=== PATIENT | female | born 1950 | race Caucasian/White ===

== ENCOUNTER 2017-06-28 13:58 | Outpatient (CLI) | payer OTHER ==
[2017-06-28 19:06] LABS: FOLATE 21.53 ng/mL (5.90 - >24.8)
[2017-06-28 19:11] LABS: IRON 65 ug/dL (28-170); TOTAL IRON BINDING CAPACITY 337 ug/dL (250-450); TRANSFERRIN 241 mg/dL (192-382)
[2017-06-28 19:16] LABS: THYROID STIMULATING HORMONE 2.3 uIU/mL (0.34-5.60)
[2017-06-28 19:20] LABS: HEMOGLOBIN A1C 0.52 g/dL
== END 2017-06-28 13:59 | disposition home or self-care (01) ==
LOC: LAB.F 13:58
PROVIDERS: ATTEND Nurse Practitioner Family
DX: G60.9 Hereditary and idiopathic neuropathy, unspecified (principal)
CPT/HCPCS: 36415; 82607; 82746; 83036; 83540; 84443; 84466

== ENCOUNTER 2017-08-24 15:22 | Outpatient (CLI) | payer OTHER ==
--- NOTE | 2017-09-01 13:01 | Mammography Report ---
DIGITAL SCREENING MAMMOGRAM: 08/24/2017 CLINICAL INDICATION: A 67-year-old for screening. COMPARISON: 10/2013, 07/2008 TECHNIQUE: Routine CC and MLO projections were obtained of the breasts. FINDINGS: The breasts demonstrate heterogeneously dense fibroglandular parenchyma bilaterally. Punc shankar, typically benign calcifications are present. No suspicious masses, clustered microcalcificatio ns, or regions of architectural distortion are identified. IMPRESSION: BENIGN FINDINGS. RECOMMENDATION: Routine annual screening unless otherwise clinically indicated. BIRADS CATEGORY 2 - BENIGN FINDINGS. STANDARD QUALIFYING STATEMENTS 1. This examination was reviewed with the aid of Computer-Aided Detection (CAD). 2. A negative or benign imaging report should not delay biopsy if clinically suspicious findings are present. Consider surgical consultation if warranted. More than 5% of cancers are not identified by i maging. 3. Dense breasts may obscure an underlying neoplasm. JOB #: [id number] EXT JOB #:[id number]
== END 2017-08-24 15:23 | disposition home or self-care (01) ==
LOC: DI.S 15:22
PROVIDERS: ATTEND Nurse Practitioner Family
DX: Z12.31 Encounter for screening mammogram for malignant neoplasm of breast (principal)
CPT/HCPCS: 77067

== ENCOUNTER 2020-03-26 17:04 | Outpatient (CLI) | payer MEDICARE | END 2020-03-26 23:59 | disposition critical access hospital (66) | LOC: EMS 17:04 | PROVIDERS: ATTEND Surgery | DX: R07.9 Chest pain, unspecified (principal) | CPT/HCPCS: A0425; A0427 ==

== ENCOUNTER 2020-03-26 17:31 | Observation (INO) | payer MEDICARE, OTHER ==
[2020-03-26] MEDS ORDERED: SODIUM CHLORIDE 0.9% 1,000 ML IV ONE ×2 (17:45→18:51)
--- NOTE | 2020-03-26 17:46 | ED Physician Documentation ---
PD HPI CHEST PAIN - Stated complaint Stated Complaint: CHEST PAIN - History obtained from History obtained from: Patient, EMS - History of Present Illness Timing - onset: Enter time (1624), Today Timing - onset during: Rest Timing - duration: Minutes (5) Timing - details: Abrupt onset, Waxing and waning, Still present in ED Pain level max: 10 Pain level now: 2 Quality: Pressure Location: Substernal, Left chest Radiation: Jaw, Neck Improved by: Nitro Worsened by: No: Exertion, Inspiration, Eating, Movement, Palpation, Position Associated symptoms: Diaphoresis, Nausea, Feeling faint / dizzy, General Weakness. No: Vomiting, Palpitations, Cough Similar symptoms before: Has not had sx before Recently seen: Not recently seen - Additional information Additional information: Previously well 69-year-old female has developed pain in her left chest that is radiated up into her neck and jaw. She states that she was sitting on her couch this afternoon after working in the garden all day when she had the onset of this 9 out of 10 pain that lasted about 5 minutes. She got mildly diaphoretic with it mildly nauseous felt faint but did not get short of breath. She did state that she tested her exertion and had exertional capacity without change in the pain. She also states that in the ambulance her pain returned she was given nitroglycerin that resolved returned she was given nitroglycerin and resolved. The patient states that she has not had a prior cardiac history and her family history is mostly negative except for her grandparents. She did spend the day outside weeding and raking and she had a cup of coffee this morning and a drink of cold milk this afternoon. Review of Systems Constitutional: denies: Fever, Chills, Myalgias, Fatigue Eyes: denies: Decreased vision Ears: denies: Ear pain Nose: denies: Rhinorrhea / runny nose, Congestion Throat: denies: Oral lesions / sores, Sore throat Cardiac: reports: Chest pain / pressure. denies: Palpitations, Pedal edema, Calf pain Respiratory: denies: Dyspnea, Cough GI: denies: Abdominal Pain, Nausea, Vomiting, Constipation : denies: Dysuria, Frequency, Hesitancy Skin: denies: Rash Musculoskeletal: denies: Neck pain, Back pain, Extremity pain Neurologic: denies: Generalized weakness, Focal weakness, Numbness PD PAST MEDICAL HISTORY - Allergies Allergies/Adverse Reactions: Allergies Allergy/AdvReac Type Severity Reaction Status Date / Time Sulfa (Sulfonamide Allergy Unknown Unknown Verified 03/26/20 17:49 Antibiotics) cephalexin Allergy Unknown Verified 03/26/20 18:39 codeine Allergy Unknown Verified 03/26/20 18:39 Erythropoietin Analogues Allergy Unknown Verified 03/26/20 18:39 nitrofurantoin Allergy Unknown Verified 03/26/20 18:39 trimethoprim Allergy Unknown Verified 03/26/20 18:39 vancomycin Allergy Unknown Verified 03/26/20 18:39 PD ED PE NORMAL - Vitals Vital signs reviewed: Yes - General General: Alert and oriented X 3, No acute distress, Well developed/nourished - HEENT HEENT: Atraumatic, PERRL, EOMI - Neck Neck: Supple, no meningeal sign, No bony TTP - Cardiac Cardiac: RRR, No murmur - Respiratory Respiratory: No respiratory distress, Clear bilaterally, Other (no chest wall tenderness) - Abdomen Abdomen: Soft, Non tender - Back Back: No CVA TTP, No spinal TTP - Derm Derm: Normal color, Warm and dry, No rash - Extremities Extremities: No deformity, No edema, No calf tenderness / cord - Neuro Neuro: Alert and oriented X 3, tier lift operator 2-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, No motor deficit, No sensory deficit, Normal speech Eye Opening: Spontaneous Motor: Obeys Commands Verbal: Oriented GCS Score: 15 - Psych Psych: Normal mood, Normal affect Results - Vitals Vitals: Vital Signs - 24 hr 03/26/20 03/26/20 17:53 18:20 Temperature 36.6 C Heart Rate 92 88 Respiratory 17 16 Rate Blood Pressure 113/68 113/68 O2 Saturation 99 96 Oxygen O2 Source Room air - EKG (time done) 1736 Rate: Rate (enter#) (87) Rhythm: NSR Ischemia: Q waves (inferior abnormal ) Compare to prior EKG: Old EKG unavailable Computer interpretation: Agree with computer - Labs Labs: Laboratory Tests 03/26/20 03/26/20 03/26/20 17:57 17:57 17:57 WBC 9.2 RBC 4.34 Hgb 13.7 Hct 40.6 MCV 93.5 MCH 31.6 H MCHC 33.7 RDW 13.0 Plt Count 235 MPV 9.5 Neut # (Auto) 7.0 H Lymph # (Auto) 1.3 L [place] # (Auto) 0.8 Eos # (Auto) 0.1 Baso # (Auto) 0.1 Absolute Nucleated RBC 0.00 Nucleated RBC % 0.0 Sodium 137 Potassium 3.2 L Chloride 101 Carbon Dioxide 23 Anion Gap 13.0 BUN 26 H Creatinine 1.4 H Estimated GFR (MDRD) 38 L Glucose 95 Lactic Acid Calcium 9.1 Total Bilirubin 0.9 AST 20 ALT 16 Alkaline Phosphatase 69 Troponin I High Sens 3.6 Total Protein 7.3 Albumin 4.3 Globulin 3.0 Albumin/Globulin Ratio 1.4 Lipase 34 03/26/20 17:57 WBC RBC Hgb Hct MCV MCH MCHC RDW Plt Count MPV Neut # (Auto) Lymph # (Auto) [place] # (Auto) Eos # (Auto) Baso # (Auto) Absolute Nucleated RBC Nucleated RBC % Sodium Potassium Chloride Carbon Dioxide Anion Gap BUN Creatinine Estimated GFR (MDRD) Glucose Lactic Acid 1.7 Calcium Total Bilirubin AST ALT Alkaline Phosphatase Troponin I High Sens Total Protein Albumin Globulin Albumin/Globulin Ratio Lipase - Rads (name of study) chest Radiology: Prelim report reviewed (Impression: No acute cardiopulmonary abnormality.), EMP read indepedently, See rad report Procedures - IVC sono (time) 1745 Bedside IVC sono: IVC measures (cm) (0.63), Significant dehydration (est 3 liter deficit) PD MEDICAL DECISION MAKING - ED course Complexity details: reviewed old records, reviewed results, re-evaluated patient, considered differential, d/w patient ED course: Previous well 69-year-old female who was with a day out in her garden raking and weeding is profoundly dehydrated on interrogation the inferior vena cava. She is come into the emergency department today with episodic chest pain that is been relieved with nitroglycerin. Her initial electrocardiogram show some inferior Q waves and no ST or T wave abnormalities. An IV line is begun she is given intravenous saline troponin is checked chest x-ray is obtained. Diagnostics are otherwise unremarkable, with the exception of her BUN and creatinine which are mildly elevated consistent with the level of dehydration she is experiencing. I suspect her chest pain may be real and related to her dehydration. I do not believe she has acute coronary syndrome. At shift change her care is turned over to Dr. Mathew with a second troponin pending.
[2020-03-26] MEDS ORDERED: SODIUM CHLORIDE 0.9% 1,000 ML IV STA (17:59)
[2020-03-26 18:08] LABS: BASOPHILS # (AUTO) 0.1 10^3/uL (0.0-0.1); BASOPHILS % (AUTO) 0.5 %; EOSINOPHILS # (AUTO) 0.1 10^3/uL (0.0-0.7); EOSINOPHILS % (AUTO) 1.2 %; HGB - HEMOGLOBIN 13.7 g/dL (12.0-16.0); LYMPHOCYTES # (AUTO) 1.3 10^3/uL (1.5-3.5); MEAN CORPUSCULAR HEMOGLOBIN 31.6 pg (27.0-31.0); MEAN CORPUSCULAR HGB CONC 33.7 g/dL (32.0-36.0); MEAN CORPUSCULAR VOLUME 93.5 fL (81.0-99.0); MEAN PLATELET VOLUME 9.5 fL (7.9-10.8); MONOCYTES # (AUTO) 0.8 10^3/uL (0.0-1.0); MONOCYTES % (AUTO) 8.2 %; NEUTROPHILS % (AUTO) 75.4 %; PLT - PLATELET COUNT 235 10^3/uL (130-450); RED BLOOD COUNT 4.34 10^6/uL (4.20-5.40); WHITE BLOOD COUNT 9.2 x10^3/uL (4.8-10.8)
[2020-03-26 18:19] LABS: ALBUMIN 4.3 g/dL (3.2-5.5); ALBUMIN/GLOBULIN RATIO 1.4 (1.0-2.2); BILIRUBIN,TOTAL 0.9 mg/dL (0.2-1.0); CALCIUM 9.1 mg/dL (8.5-10.3); CREATININE 1.4 mg/dL (0.4-1.0); TOTAL PROTEIN 7.3 g/dL (6.7-8.2)
--- NOTE | 2020-03-26 18:22 | XRAY Report ---
Reason: chest pain Procedure Date: 03/26/2020 Accession Number: [id number] / [id number] Procedure: XR - Chest 1 View X-Ray CPT Code: 91953 Final Report FULL RESULT: EXAM: CHEST RADIOGRAPHY EXAM DATE: 03/26/2020 06:09 PM. CLINICAL HISTORY: Chest pain. COMPARISON: None. TECHNIQUE: 1 view. FINDINGS: Lungs/Pleura: No focal opacities evident. No pleural effusion. No pneumothorax. Mediastinum: Within exam limitations, the cardiomediastinal contour is normal. Other: None. IMPRESSION: No acute cardiopulmonary abnormality. RAD[facility]
[2020-03-26] MEDS ORDERED: POTASSIUM CHLORIDE 20 MEQ TABLET PO STA ×2 (18:23→21:13)
[2020-03-26 20:05] LABS: BILIRUBIN,URINE NEGATIVE (NEGATIVE); GLUCOSE, URINE (UA) NEGATIVE (NEGATIVE); KETONES,URINE (UA) 15 mg/dL (NEGATIVE); LEUKOCYTE ESTERASE, URINE NEGATIVE (NEGATIVE); NITRITE,URINE NEGATIVE (NEGATIVE); OCCULT BLOOD,URINE NEGATIVE (NEGATIVE); PH,URINE 6.5 PH (5.0-7.5); PROTEIN,URINE NEGATIVE (NEGATIVE); UROBILINOGEN,URINE 0.2 (NORMAL) E.U./dL (NORMAL)
[2020-03-26 20:09] LABS: CLARITY,URINE CLEAR (CLEAR)
[2020-03-26] MEDS ORDERED: SODIUM CHLORIDE FLUSH 0.9% 10 ML SYRINGE IVP PRN (20:45)
--- NOTE | 2020-03-26 20:48 | ED Physician Documentation ---
PD HPI CHEST PAIN - Stated complaint Stated Complaint: CHEST PAIN - Chief complaint Chief Complaint: Cardiac - History obtained from History obtained from: Patient (See separate note for complete history and physical by Dr. Lupillo Dos Santos.) Review of Systems Constitutional: reports: Reviewed and negative Eyes: reports: Reviewed and negative Ears: reports: Reviewed and negative Nose: reports: Reviewed and negative Throat: reports: Reviewed and negative Cardiac: reports: Chest pain / pressure Respiratory: reports: Reviewed and negative GI: reports: Reviewed and negative : reports: Reviewed and negative Skin: reports: Reviewed and negative Musculoskeletal: reports: Reviewed and negative Neurologic: reports: Reviewed and negative Psychiatric: reports: Reviewed and negative Endocrine: reports: Reviewed and negative Immunocompromised: reports: Reviewed and negative PD PAST MEDICAL HISTORY - Past Medical History Past Medical History: Yes Cardiovascular: None Respiratory: None Neuro: None Endocrine/Autoimmune: None GI: None 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: Other : Renal insuffiency HEENT: None Psych: None Musculoskeletal: None Derm: None Other Past Medical History: CERVICAL CANCER - Past Surgical History Past Surgical History: Yes /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: Hysterectomy, Oophrectomy - Allergies Allergies/Adverse Reactions: Allergies Allergy/AdvReac Type Severity Reaction Status Date / Time Sulfa (Sulfonamide Allergy Unknown Unknown Verified 03/26/20 17:49 Antibiotics) cephalexin Allergy Unknown Verified 03/26/20 18:39 codeine Allergy Unknown Verified 03/26/20 18:39 Erythropoietin Analogues Allergy Unknown Verified 03/26/20 18:39 nitrofurantoin Allergy Unknown Verified 03/26/20 18:39 trimethoprim Allergy Unknown Verified 03/26/20 18:39 vancomycin Allergy Unknown Verified 03/26/20 18:39 - Social History Does the pt smoke?: No Smoking Status: Never smoker Does the pt drink ETOH?: No Does the pt have substance abuse?: No - Immunizations Immunizations are current?: Yes PD ED PE NORMAL - Vitals Vital signs reviewed: Yes - General General: Alert and oriented X 3, No acute distress - HEENT HEENT: PERRL - Neck Neck: Supple, no meningeal sign - Cardiac Cardiac: RRR, No murmur - Respiratory Respiratory: Clear bilaterally - Abdomen Abdomen: Normal bowel sounds, Soft, Non tender, Non distended - Derm Derm: Warm and dry - Extremities Extremities: No deformity - Neuro Neuro: Alert and oriented X 3 - Psych Psych: Normal mood, Normal affect Results - Vitals Vitals: Vital Signs - 24 hr 03/26/20 03/26/20 03/26/20 17:53 18:20 19:34 Temperature 36.6 C Heart Rate 92 88 89 Respiratory 17 16 15 Rate Blood Pressure 113/68 113/68 121/70 O2 Saturation 99 96 98 03/26/20 20:40 Temperature Heart Rate 86 Respiratory 13 Rate Blood Pressure 142/83 H O2 Saturation 98 Oxygen O2 Source Room air - Labs Labs: Laboratory Tests 03/26/20 03/26/20 03/26/20 17:57 17:57 17:57 WBC 9.2 RBC 4.34 Hgb 13.7 Hct 40.6 MCV 93.5 MCH 31.6 H MCHC 33.7 RDW 13.0 Plt Count 235 MPV 9.5 Neut # (Auto) 7.0 H Lymph # (Auto) 1.3 L [place] # (Auto) 0.8 Eos # (Auto) 0.1 Baso # (Auto) 0.1 Absolute Nucleated RBC 0.00 Nucleated RBC % 0.0 Sodium 137 Potassium 3.2 L Chloride 101 Carbon Dioxide 23 Anion Gap 13.0 BUN 26 H Creatinine 1.4 H Estimated GFR (MDRD) 38 L Glucose 95 Lactic Acid Calcium 9.1 Total Bilirubin 0.9 AST 20 ALT 16 Alkaline Phosphatase 69 Troponin I High Sens 3.6 Total Protein 7.3 Albumin 4.3 Globulin 3.0 Albumin/Globulin Ratio 1.4 Lipase 34 Urine Color Urine Clarity Urine pH Ur Specific [place] Urine Protein Urine Glucose (UA) Urine Ketones Urine Occult Blood Urine Nitrite Urine Bilirubin Urine Urobilinogen Ur Leukocyte Esterase Ur Microscopic Review Urine Culture Comments 03/26/20 03/26/20 03/26/20 17:57 19:35 19:50 WBC RBC Hgb Hct MCV MCH MCHC RDW Plt Count MPV Neut # (Auto) Lymph # (Auto) [place] # (Auto) Eos # (Auto) Baso # (Auto) Absolute Nucleated RBC Nucleated RBC % Sodium Potassium Chloride Carbon Dioxide Anion Gap BUN Creatinine Estimated GFR (MDRD) Glucose Lactic Acid 1.7 Calcium Total Bilirubin AST ALT Alkaline Phosphatase Troponin I High Sens 4.0 Total Protein Albumin Globulin Albumin/Globulin Ratio Lipase Urine Color YELLOW Urine Clarity CLEAR Urine pH 6.5 Ur Specific [place] 1.010 Urine Protein NEGATIVE Urine Glucose (UA) NEGATIVE Urine Ketones 15 H Urine Occult Blood NEGATIVE Urine Nitrite NEGATIVE Urine Bilirubin NEGATIVE Urine Urobilinogen 0.2 (NORMAL) Ur Leukocyte Esterase NEGATIVE Ur Microscopic Review NOT INDICATED Urine Culture Comments NOT INDICATED PD MEDICAL DECISION MAKING - ED course Complexity details: other (Patient signed out to me at shift change by Dr. Dos Santos. Patient has a heart score of 6 she is never had a stress test patient will be admitted for observation and stress test in the morning.) - Consults Consults: Consulted (name) (20:47 Spoke with the hospitalist Dr. akbaru will admit for observation and stress test) Departure - Departure Disposition: ED Place in Observation Clinical Impression: Chest pain Qualifiers: Chest pain type: unspecified Qualified Code(s): R07.9 - Chest pain, unspecified Condition: Stable
[2020-03-26] MEDS ORDERED: ASPIRIN 325 MG TABLET PO STA (20:52)
[2020-03-26] MEDS ORDERED: SODIUM CHLORIDE 0.9% 1,000 ML IV SCH (21:00)
--- NOTE | 2020-03-26 21:00 | HISTORY & PHYSICAL EXAMINATION ---
Chief Complaint - Chief Complaint Chief Complaint: chest pain History of Present Illness - Admitted From Admitted From:: [facility] ED - History Obtained From Records Reviewed: yes History obtained from: patient - History of Present Illness HPI Comment/Other: Patient is a 69-year-old female with past medical history of cervical cancer status post chemotherapy, radiotherapy and surgery, Migraines and Trigeminal neuralgia. She presented to the ED today with complaint of left-sided chest pressure with radiation of pain up her neck and jaw. This happened around 4:30 PM today. It was constant lasting around 10 minutes. Shortly before onset she had been doing some yard work which involved raking leaves, weeding and cutting. Her called EMS and upon their arrival she was given a full dose aspirin and nitroglycerin sublingual which produced relief. She denies any previous occurrence of such symptoms. She has not experienced any recurrence of the chest pain since arrival to the emergency department. She denies dyspnea, abdom inal pain, nausea, vomiting, fever or chills. She has been experiencing some heartburn lately but adds that it resolves with Tums. She does not have lower extremity edema but has been prescribed HCTZ for edema in the past. In the ED a 12-lead EKG was done which was largely unremarkable. She had t roponins done x2 which were normal. Her potassium was 3.2 and her creatinine was found to be 1.4. As a result of her presentation with chest pain she is being admitted for further work-up which is to include a stress test. History - Past Medical History Cardiovascular: reports: None Respiratory: reports: None Neuro: reports: Migraines, Other (Trigeminal Neuralgia) Endocrine/Autoimmune: reports: None GI: reports: None NUT SIFTER: reports: Other (Hx of cervical cancer) : reports: Renal insuffiency HEENT: reports: None Psych: reports: None Musculoskeletal: reports: None Derm: reports: None Other Past Medical History: CERVICAL CANCER.This was diagnosed in 2004. The patient underwent chemotherapy to shrink the cancer. This was followed by surgery. Then subsequently more chemotherapy and radiotherapy. 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 Her previous treatment for cervical cancer was done in [place] with [facility]. The cervical cancer had met the size and involved the ureter so at some point she had ureteral stents placed. She subsequently had a hysterectomy and BSO. - Past Surgical History /NUT SIFTER: reports: Hysterectomy, Oophrectomy - Family & Social History Family History Comment/Other: brother has arrhythmias. he also weighs about 400lbs Social History Notes: She lives at home with her . She does not smoke. She drinks occasionally. She does not use any illicit drugs. - POLST Patient has POLST: No POLST Status: Full Code Meds/Allgy - Allergies Allergies/Adverse Reactions: Allergies Allergy/AdvReac Type Severity Reaction Status Date / Time Sulfa (Sulfonamide Allergy Unknown Unknown Verified 03/26/20 17:49 Antibiotics) cephalexin Allergy Unknown Verified 03/26/20 18:39 codeine Allergy Unknown Verified 03/26/20 18:39 Erythropoietin Analogues Allergy Unknown Verified 03/26/20 18:39 nitrofurantoin Allergy Unknown Verified 03/26/20 18:39 trimethoprim Allergy Unknown Verified 03/26/20 18:39 vancomycin Allergy Unknown Verified 03/26/20 18:39 Review of Systems - Constitutional Constitutional: denies: Fatigue, Fever, Chills, Weakness - Eyes Eyes: denies: Pain, Vision loss, Dipolpia - Ears, Nose & Throat Ears, Nose & Throat: denies: Vertigo, Sore throat - Cardiovascular Cariovascular: reports: Chest pain. denies: Irregular heart rate, Palpitations, Edema, Lightheadedness, Syncope, Exertional dyspnea, Decr. exercise tolerance - Respiratory Respiratory: denies: Cough, Sputum production, Wheezing, SOB at rest, SOB with exertion - Gastrointestinal Gastrointestinal: denies: Abdominal pain, Abdominal distention, Constipation, Diarrhea, Nausea, Vomiting, Coffee grounds emesis - Genitourinary Genitourinary: denies: Dysuria, Frequency, Urgency, Hematuria - Musculoskeletal Musculoskeletal: denies: Muscle pain, Back pain, Muscle aches, Stiffness - Integumentary Integumentary: denies: Rash, Pruritis, Lesions - Neurological Neurological: denies: General weakness, Focal weakness, Headache, Dizziness - Psychiatric Psychiatric: denies: Depression, Anxiety - Endocrine Endocrine: denies: Polyuria, Polydypsia - Hematologic/Lymphatic Hematologic/Lymphatic: denies: Anemia, Bruising, Petechiae Prior Level of Functionality: Patient is independent of activities of daily living Exam - Vital Signs Vital Signs: Vital Signs x48h Temp Pulse Resp BP Pulse Ox 03/26/20 20:40 86 13 142/83 H 98 03/26/20 19:34 89 15 121/70 98 03/26/20 18:20 88 16 113/68 96 03/26/20 17:53 36.6 C 92 17 113/68 99 - Physical Exam General Appearance: positive: No acute distress, Alert Eyes Bilateral: positive: PERRL, EOMI ENT: positive: No signs of dehydration Neck: positive: Thyroid nml (however slight bugginess noted in the suprastenal notch), No JVD, Trachea midline Respiratory: positive: Chest non-tender, No respiratory distress, Breath sounds nml. negative: Wheezes, Rales, Rhonchi Cardiovascular: positive: Regular rate & rhythm, No murmur Abdomen: positive: Non-tender, Nml bowel sounds, No distention, Guarding, Rebound Back: positive: Nml inspection Skin: positive: Color nml, No rash, Warm, Dry Extremities: positive: Non-tender, Full ROM, No pedal edema Neurologic/Psychiatric: positive: Oriented x3, Mood/affect nml Conclusion/Plan - Problem List (1) Chest pain Conclusion/Plan: Etiology undetermined. Troponin has been negative x2. EKG was unremarkable for any acute process. We will trend troponin x1 more. Stress test has been ordered for tomorrow morning. Patient was given a full dose of aspirin 325 mg p.o. Should chest pain resume will administer sublingual nitroglycerin. We will monitor patient on telemetry overnight. Qualifiers: Chest pain type: unspecified Qualified Code(s): R07.9 - Chest pain, unspecified (2) Acute kidney injury Conclusion/Plan: Etiology undetermined. Patient had previous history of renal insufficiency due to frequent urinary tract infections related to metastatic cervical cancer Patient had right nephrectomy due to cervical cancer. At another point she had ureteral stent placed We will hold HCTZ. IV hydration with normal saline at 100 mils per hour. Expect improvement will recheck BMP in the morning. (3) Hypokalemia Conclusion/Plan: Patient given 60 mEq of potassium chloride p.o. We will recheck in the morning. We will also check magnesium level. - Lab Results Fish Bones: 03/26/20 17:57 03/26/20 17:57 Core Measures - Anticipated LOS I expect patient to be DC'd or transferred within 96 hours.: Yes - DVT/VTE - Prophylaxis VTE/DVT Device ordered at admit?: Yes VTE/DVT Prophylaxis med ordered at admit?: Yes
[2020-03-26] MEDS: SODIUM CHLORIDE FLUSH 0.9% 10 ML SYRINGE IVP SCH (23:48)
[2020-03-27 05:24] LABS: BASOPHILS % (AUTO) 0.5 %; EOSINOPHILS # (AUTO) 0.2 10^3/uL (0.0-0.7); EOSINOPHILS % (AUTO) 2.9 %; HGB - HEMOGLOBIN 12.3 g/dL (12.0-16.0); LYMPHOCYTES # (AUTO) 1.3 10^3/uL (1.5-3.5); MEAN CORPUSCULAR HEMOGLOBIN 31.3 pg (27.0-31.0); MEAN CORPUSCULAR HGB CONC 33.1 g/dL (32.0-36.0); MEAN CORPUSCULAR VOLUME 94.7 fL (81.0-99.0); MEAN PLATELET VOLUME 9.6 fL (7.9-10.8); MONOCYTES # (AUTO) 0.7 10^3/uL (0.0-1.0); NEUTROPHILS # (AUTO) 3.4 10^3/uL (1.5-6.6); NEUTROPHILS % (AUTO) 60.2 %; PLT - PLATELET COUNT 218 10^3/uL (130-450); RED BLOOD COUNT 3.93 10^6/uL (4.20-5.40); RED CELL DISTRIBUTION WIDTH 13.2 % (12.0-15.0); WHITE BLOOD COUNT 5.6 x10^3/uL (4.8-10.8)
[2020-03-27 05:36] LABS: CALCIUM 8.1 mg/dL (8.5-10.3); MAGNESIUM 2.1 mg/dL (1.7-2.8)
[2020-03-27] MEDS ORDERED: PANTOPRAZOLE 40 MG TABLET PO SCH (07:00)
[2020-03-27] MEDS ORDERED: NITROGLYCERIN SL 0.4 MG TABLET SL PRN (08:05)
[2020-03-27] MEDS ORDERED: ENOXAPARIN 40 MG/0.4 ML SYRINGE SUBQ SCH (09:00)
[2020-03-27] MEDS ORDERED: ASPIRIN CHEW 81 MG TABLET PO SCH (09:00)
--- NOTE | 2020-03-27 09:28 | PHARMACY PROGRESS NOTE ---
- Best Possible Medication History Admit Date and Time: 03/26/202044 Processed by: Pharmacy Medication History completed: Yes Secondary Source(s): Physician records, Pharmacy records, Insurance records As the person ultimately responsible for medication therapy, providers are able to order a medication from an existing home medication list in [facility] via the "Reconcile Routine" prior to Confirmation of that medication by client support professional. Such practice is discouraged except when the physician, in their clinical judgment, deems that a medical need exists for a medication without regard to previous use.
[2020-03-27] MEDS: SODIUM CHLORIDE FLUSH 0.9% 10 ML SYRINGE IVP SCH (11:48)
[2020-03-27] MEDS ORDERED: amLODIPine 5 MG TABLET PO SCH (12:00)
[2020-03-27] MEDS ORDERED: SODIUM CHLORIDE 0.9% 1,000 ML IV SCH (12:00)
--- NOTE | 2020-03-27 12:50 | Nuclear Medicine Report ---
Reason: chest pain Procedure Date: 03/27/2020 Accession Number: [id number] / [id number] Procedure: NM - Myocardial Perfusion STR/RST CPT Code: Final Report FULL RESULT: EXAM: SINGLE-ISOTOPE EXERCISE STRESS TEST. SINGLE-ISOTOPE AND ONE-DAY REST/STRESS MYOCARDIAL PERFUSION SCANS WITH TOMOGRAPHIC IMAGING, QUANTITATIVE ANALYSIS, WALL MOTION ANALYSIS AND CALCULATION OF EJECTION FRACTION. EXAM DATE: 03/27/2020 12:19 PM. CLINICAL HISTORY: Chest pain. COMPARISON: None available. TECHNIQUE: A rest myocardial perfusion scan was done with tomography after the intravenous administration of 10.4 mCi Tc-99m sestamibi. After an appropriate delay, a treadmill exercise stress was performed according to department protocol. The patient exercised for 6 minutes and 0 seconds. The maximum heart rate was 146 bpm, which was 95% of the maximum predicted heart rate of 153 bpm. At approximately peak heart rate, 40.4 mCi of Tc-99m sestamibi was injected for stress myocardial perfusion scan. Motion correction was applied when appropriate. Gated tomographic images were obtained for wall motion analysis and computation of left ventricular ejection fraction. FINDINGS: There is a fixed apical perfusion defect. No convincing reversible perfusion defects. Wall motion analysis demonstrates no focal wall motion abnormality. The left ventricular end-diastolic volume is 51 cc. The left ventricular end-systolic volume is 7 cc. The left ventricular ejection fraction is calculated to be 86%. IMPRESSION: 1. Fixed apical perfusion defect. No convincing reversible perfusion defects. 2. Normal left ventricular ejection fraction of 86%. 3. Normal segmental and global wall motion. 4. Normal left ventricular cavity size, no change with stress. Please correlate findings with stress ECG tracings and procedure notes. RAD[facility]
[2020-03-27 13:05] VITALS: BP 126/68
--- NOTE | 2020-03-27 13:33 | Discharge Plan ---
Discharge Plan Problem Reviewed?: Yes Disposition: Home, Self Care Condition: Stable Prescriptions: Nitroglycerin [Nitrostat] 0.4 mg SL Q5MIN PRN #20 tablet PRN Reason: Chest Pain amLODIPine [Norvasc] 5 mg PO DAILY #15 tablet Aspirin Chewable [[place]inson Aspirin] 81 mg PO DAILY #15 tablet Atorvastatin [Lipitor] 20 mg PO QPM #15 tablet Diet: Diabetic Activity Restrictions: Activity as Tolerated Shower Restrictions: No (fall precaution) Instruction Topics: Aspirin capsules or tablets extended release, Atorvastatin tablets, Amlodipine, Nitroglycerin Fast Acting, Heart Attack Angina Recognize Health Concerns: chest pain, dehydration Plan of Treatment: you report you have no more chest pain. your ECHO and EKG, and serial troponin test are unremarkable. Your stress test reveals fixed apical perfusion defect, no convincing reversible perfusion defects. Baby Aspirin, Lipitor is prescribed for you. advise you followup director of planning as out-pt, hold exercise until you see director of planning. you were found to have significant dehydration, advise you keep hydration. Care Goals: stabilization and improvement/resolve of your medical conditions. Assessment: discussed with you the care plan, you understood and agreed. Additional Instructions or Follow Up instructions: you may followup your PCP in one week, followup director of planning in two weeks. Should your symptoms return or worsen, you may present ER or call 911 for help. No Smoking: If you smoke, Please STOP! Call for help.
--- NOTE | 2020-03-27 13:45 | DISCHARGE SUMMARY ---
Discharge Summary Admit Date: 03/26/20 Discharge Date: 03/27/20 Discharging Provider: Obie Crawley Primary Care Provider: Concepcion Mckinney Condition at Discharge: Stable Discharge Disposition: 01 Home, Self Care Discharge Facility Name: home - DIAGNOSES Admission Diagnoses: (1) Chest pain (2) Acute kidney injury (3) Hypokalemia Discharge Diagnoses with Status of Each Condition: (1) Chest pain pt report her chest pain is resolved, no more chest pain. pt's ECHO, serial troponin, EKG are unremarkable. stress test reveals fixed apical perfusion defect, no convincing reversible perfusion defects. Baby Aspirin, Lipitor , nitro PRN are prescribed for you. advise you followup bank messenger as out-pt, hold exercise until you see bank messenger. (2) Acute kidney injury resolved. advise hydration (3) Hypokalemia resolved (4)HTN stable, pt's home BP meds HCTZ is hold now because of low potassium level at the admission. pt is prescribed Norvasc. pt has unremarkable ECHO. - HPI History of Present Illness: refer from Dr. tolliver's HPI on 03/26/2020 Patient is a 69-year-old female with past medical history of cervical cancer status post chemotherapy, radiotherapy and surgery, Migraines and Trigeminal neuralgia. She presented to the ED today with complaint of left-sided chest pressure with radiation of pain up her neck and jaw. This happened around 4:30 PM today. It was constant lasting around 10 minutes. Shortly before onset she had been doing some yard work which involved raking leaves, weeding and cutting. Her called EMS and upon their arrival she was given a full dose aspirin and nitroglycerin sublingual which produced relief. She denies any previous occurrence of such symptoms. She has not experienced any recurrence of the chest pain since arrival to the emergency department. She denies dyspnea, abdominal pain, nausea, vomiting, fever or chills. She has been experiencing some heartburn lately but adds that it resolves with Tums. She does not have lower extremity edema but has been prescribed HCTZ for edema in the past. In the ED a 12-lead EKG was done which was largely unremarkable. She had troponins done x2 which were normal. Her potassium was 3.2 and her creatinine was found to be 1.4. As a result of her presentation with chest pain she is being admitted for further work-up which is to include a stress test. - HOSPITAL COURSE Hospital Course: pt was admitted for chest pain. pt's ECHO, serial troponin, EKG are unremarkable. stress test reveals fixed apical perfusion defect, no convincing reversible perfusion defects. Baby Aspirin, Lipitor , nitro PRN are prescribed for pt. advise pt followup bank messenger as out-pt, hold exercise until she see bank messenger. The detail hospital course is as the below. (1) Chest pain pt report her chest pain is resolved, no more chest pain. pt's ECHO, serial troponin, EKG are unremarkable. stress test reveals fixed apical perfusion defect, no convincing reversible perfusion defects. Baby Aspirin, Lipitor , nitro PRN are prescribed for you. advise you followup bank messenger as out-pt, hold exercise until you see bank messenger. (2) Acute kidney injury resolved. advise hydration (3) Hypokalemia resolved (4)HTN stable, pt's home BP meds HCTZ is hold now because of low potassium level at the admission. pt is prescribed Norvasc. pt has unremarkable ECHO - ALLERGIES Allergies/Adverse Reactions: Allergies Allergy/AdvReac Type Severity Reaction Status Date / Time Sulfa (Sulfonamide Allergy Unknown Unknown Verified 03/26/20 17:49 Antibiotics) cephalexin Allergy Unknown Verified 03/26/20 18:39 codeine Allergy Unknown Verified 03/26/20 18:39 Erythropoietin Analogues Allergy Unknown Verified 03/26/20 18:39 nitrofurantoin Allergy Unknown Verified 03/26/20 18:39 trimethoprim Allergy Unknown Verified 03/26/20 18:39 vancomycin Allergy Unknown Verified 03/26/20 18:39 - MEDICATIONS Home Medications: Ambulatory Orders Medication Instructions Recorded Confirmed Amitriptyline [Elavil] 25 mg PO QPM 03/27/20 03/27/20 Aspirin Chewable [[facility] Edinson 81 mg PO DAILY #15 tablet 03/27/20 Aspirin] Atorvastatin [Lipitor] 20 mg PO QPM #15 tablet 03/27/20 Nitroglycerin [Nitrostat] 0.4 mg SL Q5MIN PRN #20 tablet 03/27/20 amLODIPine [Norvasc] 5 mg PO DAILY #15 tablet 03/27/20 - PHYSICAL EXAM AT DISCHARGE General Appearance: positive: No acute distress, Alert. negative: Lethargic Eyes Bilateral: positive: Normal inspection, PERRL, No lid inflammation ENT: positive: ENT inspection nml, Pharynx nml, No signs of dehydration. negative: Purulent nasal drainage Neck: positive: Nml inspection, Thyroid nml, No JVD, Trachea midline. negative: Thyromegaly, Stiff neck, Tracheal deviation Respiratory: positive: Chest non-tender, No respiratory distress, Breath sounds nml. negative: Wheezes, Rales, Rhonchi Cardiovascular: positive: Regular rate & rhythm, No murmur, No gallop. negative: Irregularly irregular, Tachycardia, Bradycardia, Systolic murmur, Diastolic murmur Peripheral Pulses: positive: 2+ Abdomen: positive: Non-tender, No organomegaly, Nml bowel sounds, No distention. negative: Tenderness, Guarding, Rebound Back: positive: Nml inspection. negative: CVA tenderness (R), CVA tenderness (L) Skin: positive: Color nml, No rash, Warm, Dry. negative: Cyanosis, Diaphoresis, Pallor Extremities: positive: Non-tender, Full ROM, Nml appearance. negative: Calf tenderness, Jamilah's sign/cords Neurologic/Psychiatric: positive: Oriented x3, Motor nml, Sensation nml, Mood/affect nml. negative: Weakness, Sensory loss, Facial droop, Slurred/abnml speech, Depressed mood/affect - LABS Result Diagrams: 03/27/20 04:25 03/27/20 04:25 - FOLLOW UP Follow Up: you report you have no more chest pain. your ECHO and EKG, and serial troponin test are unremarkable. Your stress test reveals fixed apical perfusion defect, no convincing reversible perfusion defects. Baby Aspirin, Lipitor is prescribed for you. advise you followup bank messenger as out-pt, hold exercise until you see bank messenger. you may followup your PCP in one week, followup bank messenger in two weeks. Should your symptoms return or worsen, you may present ER or call 911 for help. - TIME SPENT Time Spent in Discharge (Minutes): 30
--- NOTE | 2020-03-27 17:12 | CARDIAC PROCEDURE NOTE ---
DATE OF SERVICE: 03/27/2020 Physician: Maria Fernanda Chatman MD INDICATION: Chest pain. CARDIAC RISK FACTORS: Postmenopausal status, possibly untreated hypertension, unknown cholesterol status. DESCRIPTION OF PROCEDURE: After signing informed consent, the patient underwent a Braeden-protocol treadmill stress test with nuclear myocardial perfusion imaging. RESTING HEART RATE: 80. PEAK HEART RATE: 146 (95% predicted maximum heart rate for age). RESTING BLOOD PRESSURE: 142/85. PEAK BLOOD PRESSURE: 192/84. The patient exercised for 6 minutes on a Braeden-protocol treadmill stress test. She achieved a peak heart rate of 146 (95% PMHR) and 7.1 METs. The patient had shortness of breath, but developed no chest pain throughout the test. Her oxygen saturation remained 92% to 98% on room air throughout exercise. She had slow recovery of heart rate and blood pressure after exercise. She reported her perceived exertion at 16/20 on the Atul scale. RESTING ELECTROCARDIOGRAM: Normal sinus rhythm, left atrial enlargement, otherwise within normal limits. ELECTROCARDIOGRAM AT PEAK: New flattening of T-waves in leads II, III, aVF, and V3 through V6. These resolved after 2 minutes of recovery. SUMMARY 1. Essentially normal electrocardiogram. 2. Electrocardiogram changes suspicious for ischemia do occur after treadmill stress at an adequate level of heart rate achieved. 3. No chest pain occurred. 4. Nuclear images reported separately. 5. This patient's cardiac risk based on all the above: Moderate-High. cc: LAUREN Pendleton TD: 03/27/2020 15:57 MTDD
[2020-03-27] MEDS ORDERED: ATORVASTATIN 40 MG TABLET PO SCH (21:00)
== END 2020-03-27 14:17 | disposition home or self-care (01) ==
LOC: EDUNIT# → ED 17:31 → MS2 20:45
PROVIDERS: ADMIT Internal Medicine; ATTEND Nurse Practitioner Gerontology
DX: R07.9 Chest pain, unspecified (principal); N17.9 Acute kidney failure, unspecified; E87.6 Hypokalemia; E86.0 Dehydration; I10 Essential (primary) hypertension; I51.0 Cardiac septal defect, acquired; Z85.41 Personal history of malignant neoplasm of cervix uteri; Z92.21 Personal history of antineoplastic chemotherapy; Z92.3 Personal history of irradiation; Z90.710 Acquired absence of both cervix and uterus; Z90.722 Acquired absence of ovaries, bilateral; Z90.5 Acquired absence of kidney
CPT/HCPCS: 36415; 71045; 78452; 80048; 80053; 81003; 82550; 83605; 83690; 83735; 84439; 84443; 84484; 85025; 93005; 93017; 93306; 96360; 96361; 96372; 99285; A9270; A9500; G0378; 81001; 87086